=== PATIENT | male | born 1960 | race Caucasian/White ===

== ENCOUNTER 2019-10-03 15:10 | Emergency (ER) | payer OTHER ==
[~2019-10-03] VITALS: Ht 165.1 cm; Wt 65.8 kg
[~2019-10-03 15:10] MED LIST: AMBIEN 10 MG TA10 MG PO; ASPIRIN EC81 M1 PO; DILAUDID 2 MG TA2 MG PO; GARLIC OIL1 EACH PO; GLUCOSAMINE HC500 MG PO; LISINOPRIL2.5 MG PO; LISINOPRIL5 MG PO; LYRICA150 MG PO; NABUMETONE 750750 M1 PO; SIMVASTATIN40 MG PO; UNICOMPLEX M TA1 TA1 PO; VALIUM5 MG PO
[2019-10-03 15:23] VITALS: BP 135/96
== END 2019-10-03 18:20 | disposition home or self-care (01) ==
LOC: ER 15:10
DX: S39.012A Strain of muscle, fascia and tendon of lower back, initial encounter (principal); S46.812A Strain of other muscles, fascia and tendons at shoulder and upper arm level, left arm, initial encounter; I10 Essential (primary) hypertension; E78.00 Pure hypercholesterolemia, unspecified; Z88.1 Allergy status to other antibiotic agents; Z88.5 Allergy status to narcotic agent; V49.49XA Driver injured in collision with other motor vehicles in traffic accident, initial encounter; Y93.89 Activity, other specified; Y92.89 Other specified places as the place of occurrence of the external cause; Y99.8 Other external cause status